=== PATIENT | female | born 1945 | race Caucasian/White ===

== ENCOUNTER 2017-03-26 11:39 | Day surgery (SDCO) | payer OTHER ==
[~2017-03-26] VITALS: Ht 162.6 cm; Wt 72.6 kg
[2017-03-26 14:35] LABS: BILIRUBIN - TOTAL 0.4 mg/dL (0.1-1.0); CREATININE 0.7 mg/dL (0.5-1.0); GLOBULIN (CALCULATION) 3.1 g/dL (2.2-4.2); POTASSIUM 4.3 mmol/L (3.5-5.1); TOTAL PROTEIN 7.1 g/dL (6.4-8.3)
[2017-03-26 22:37] LABS: BASOPHIL 0.3 % (0-2); EOSINOPHIL 0.4 % (0-7); HCT 35.6 % (37.0-47.0); HGB 11.8 g/dl (12.5-16.0); LYMPHOCYTE 23.4 % (15-48); MCH 29.6 pg (25.0-31.0); MCHC 33.1 g/dL (32.0-36.0); MCV 89.4 fL (78.0-100.0); MONOCYTE 8.9 % (0-12); MPV 8.4 fL (6.0-9.5); PLT 500 K/uL (150-400); RBC 3.98 M/uL (4.20-5.40); RDW 12.6 % (11.5-14.0)
[2017-03-27 03:40] LABS: BASOPHIL 0.5 % (0-2); EOSINOPHIL 0.9 % (0-7); HCT 33.8 % (37.0-47.0); HGB 11.2 g/dl (12.5-16.0); LYMPHOCYTE 23.4 % (15-48); MCH 29.7 pg (25.0-31.0); MCHC 33.1 g/dL (32.0-36.0); MCV 89.7 fL (78.0-100.0); MONOCYTE 9.2 % (0-12); MPV 8.5 fL (6.0-9.5); PLT 457 K/uL (150-400); RBC 3.77 M/uL (4.20-5.40); RDW 12.8 % (11.5-14.0); WBC 8.1 K/uL (4.0-10.5)
[2017-03-27 03:56] LABS: ALBUMIN 3.2 g/dL (3.4-4.8); BILIRUBIN - TOTAL 0.3 mg/dL (0.1-1.0); CREATININE 0.6 mg/dL (0.5-1.0); GLOBULIN (CALCULATION) 2.5 g/dL (2.2-4.2); POTASSIUM 4.7 mmol/L (3.5-5.1); TOTAL PROTEIN 5.7 g/dL (6.4-8.3)
[2017-03-27] MEDS ORDERED: SYNTHROID88 MCG PO (09:44)
[2017-03-27] MEDS ORDERED: ATENOLOL25 MG PO (09:44)
[2017-03-27] MEDS ORDERED: NORCO 5-325 TA1 EACH PO (09:45)
[2017-03-27] MEDS ORDERED: ASPIRIN325 MG PO (09:46)
[2017-03-27] MEDS ORDERED: BUSPIRONE HCL10 MG PO (09:46)
--- NOTE | 2017-03-27 11:15 | NUR ---
IV SITE D/C'D;PRESSURE DRESSING APPLIED;PT TOLERATED WELL 1130 DC & RX INSTRUCTIONS GIVEN;PT VERBALIZED UNDERSTANDING;ASSISTED TO MV VIA WC PER [place]DISCHARGED FROM FACILITY
== END 2017-03-27 11:25 | disposition home health service (06) ==
LOC: FER 11:39 → FTCU 16:57
PROVIDERS: Nurse Practitioner; ADMIT Internal Medicine Nephrology
DX: I26.99 Other pulmonary embolism without acute cor pulmonale (principal); I10 Essential (primary) hypertension; I34.1 Nonrheumatic mitral (valve) prolapse; E05.00 Thyrotoxicosis with diffuse goiter without thyrotoxic crisis or storm; E78.5 Hyperlipidemia, unspecified; E03.9 Hypothyroidism, unspecified; F41.1 Generalized anxiety disorder; Z96.652 Presence of left artificial knee joint; Z98.49 Cataract extraction status, unspecified eye; Z90.711 Acquired absence of uterus with remaining cervical stump; Z90.49 Acquired absence of other specified parts of digestive tract; Z88.2 Allergy status to sulfonamides; Z88.5 Allergy status to narcotic agent; Z79.82 Long term (current) use of aspirin; Z79.899 Other long term (current) drug therapy; Z98.890 Other specified postprocedural states
CPT/HCPCS: 36415; 71020; 71100; 71275; 80053; 84439; 84443; 84484; 85025; 85379; 93005; 93971; G0378; Q9967